=== PATIENT | male | born 2000 | race African-American/Black ===

== ENCOUNTER 2022-12-16 20:40 | Emergency (ER) | payer BC ==
[~2022-12-16] VITALS: Ht 175.3 cm; Wt 158.0 kg
[2022-12-16 20:54] VITALS: BP 145/96
[2022-12-17] MEDS ORDERED: AMOX1TAB16 PO (03:21)
[2022-12-17] MEDS ORDERED: BENZ100C86 PO (03:21)
== END 2022-12-17 04:42 | disposition home or self-care (01) ==
LOC: ER 20:56
DX: J06.9 Acute upper respiratory infection, unspecified (principal); J45.909 Unspecified asthma, uncomplicated
CPT/HCPCS: 71045; 93005; 99283